=== PATIENT | male | born 1985 | race Two or more races ===

== ENCOUNTER 2016-08-04 14:49 | Emergency (ER) | payer MEDICAID ==
[~2016-08-04] VITALS: Ht 180.3 cm; Wt 79.4 kg
--- NOTE | 2016-08-04 14:50 | NUR ---
PRIYA FROM HOME [facility]. PATIENT IS AA4. APPEARS IN NO APPARENT DISTRESS, RESPIRATION EVEN AND UNLABORED. SKIN IS WARM TO TOUCH AND NON DIAPHORETIC. PT IS AFEBRILE. VSS, DENIES HI/SI
[2016-08-04] MEDS ORDERED: LORAZEPAM 1 MG TABLET PO ONE (15:00)
[2016-08-04] MEDS ORDERED: OLANZAPINE 5 MG TABLET PO ONE (15:00)
[2016-08-04] MEDS ORDERED: LORAZEPAM 1 MG TABLET ONE (15:11)
[2016-08-04] MEDS ORDERED: OLANZAPINE 5 MG TABLET ONE (15:11)
[2016-08-04 15:20] LABS: BASOPHILS # (AUTO) 0.2 /CMM (0.0-0.2); BASOPHILS % (AUTO) 1.3 % (0.0-2.0); EOSINOPHILS # (AUTO) 0.3 /CMM (0.0-0.7); EOSINOPHILS % (AUTO) 1.9 % (0.0-6.0); HEMATOCRIT 44 % (39-51); HEMOGLOBIN 14.7 g/dL (13.5-17.5); LYMPHOCYTES % (AUTO) 7.5 % (20.0-44.0); MEAN CORPUSCULAR HEMOGLOBIN 28 PG (26.0-33.0); MEAN CORPUSCULAR HGB CONC 34 g/dl (31.0-36.0); MEAN CORPUSCULAR VOLUME 84 fL (80-96); MONOCYTES # (AUTO) 0.3 /CMM (0.1-1.30); MONOCYTES % (AUTO) 2.6 % (2.0-12.0); NEUTROPHILS # (AUTO) 11.7 /CMM (1.8-8.9); NEUTROPHILS % (AUTO) 86.7 % (43.0-81.0); PLATELET COUNT (AUTO) 348 /CMM (150-450); RDW COEFFICIENT OF VARIATION 11.9 (11.5-15.0); RED BLOOD CELL COUNT(AUTO) 5.25 MIL/uL (4.5-6.0); WHITE BLOOD COUNT (AUTO) 13.5 K/uL (4.3-11.0)
[2016-08-04 15:39] LABS: ACETAMINOPHEN 0 ug/ml (10-30); ALANINE AMINOTRANSFERASE 80 U/L (12-78); ALBUMIN 4.4 g/dL (3.4-5.0); ALCOHOL, BLOOD < 3 mg/dL (0-0); ALKALINE PHOSPHATASE 106 U/L (46-116); ASPARTATE AMINOTRANSFERASE 38 U/L (15-37); BILIRUBIN,DIRECT 0.1 mg/dL (0.0-0.2); BILIRUBIN,TOTAL 0.5 mg/dL (0.2-1.0); CALCIUM, SERUM 9.1 mg/dL (8.5-10.1); CARBON DIOXIDE 31 mmol/L (21-32); CHLORIDE 100 mmol/L (98-107); CREATININE 1.1 mg/dL (0.6-1.3); GLUCOSE 109 mg/dL (74-106); POTASSIUM 4.1 mmol/L (3.5-5.1); SALICYLATE 2.2 mg/dL (2.8-20.0); SODIUM SERUM 137 mmol/L (136-145); TOTAL PROTEIN, SERUM 7.7 g/dL (6.4-8.2); UREA NITROGEN, BLOOD 10 mg/dL (7-18)
[2016-08-04 16:07] LABS: APPEARANCE,URINE Clear (CLEAR); BILIRUBIN,URINE Negative (NEGATIVE); BLOOD, URINE Negative Ery/uL (NEGATIVE); COLOR,URINE Yellow (YELLOW); KETONES,URINE Negative (NEGATIVE); LEUKOCYTE ESTERASE ,URINE Negative (NEGATIVE); NITRITE, URINE Negative (NEGATIVE); PROTEIN,URINE Negative (NEGATIVE); UGLUCOSE Negative (NEGATIVE); UROBILINOGEN,URINE 0.2 EU/dL (0.2)
--- NOTE | 2016-08-04 16:54 | NUR ---
Patient discharged to home in stable condition. Written and verbal after care instructions given. Patientt and patient's parent verbalize understanding of instruction.
[2016-08-04 16:56] VITALS: BP 148/90
== END 2016-08-04 16:57 | disposition home or self-care (01) ==
LOC: ER 14:51 → EDBD 14:51 → ER 16:57
DX: F29 Unspecified psychosis not due to a substance or known physiological condition (principal); F44.81 Dissociative identity disorder; R73.03 Prediabetes; R51 Headache
CPT/HCPCS: 36415; 70450; 80048; 80076; 80305; 80329; 81001; 85025; 99285; A4606; G0480 ×2; Z7610; 81000-TC

== ENCOUNTER 2017-07-08 02:38 | Emergency (ER) | payer MEDICAID ==
[~2017-07-08] VITALS: Ht 167.6 cm; Wt 68.0 kg
[2017-07-08 02:45] VITALS: BP 134/81
== END 2017-07-08 03:17 | disposition home or self-care (01) ==
LOC: ER 02:39
DX: F11.20 Opioid dependence, uncomplicated (principal); R73.03 Prediabetes
CPT/HCPCS: 99281; A4606; Z7610; Z7502